=== PATIENT | female | born 1960 | race Caucasian/White ===

== ENCOUNTER → 2020-12-19 12:27 | Outpatient (BNVA) | payer OTHER, SELFPAY | PROVIDERS: Family Provider Family Medicine; PCP Family Medicine; Visit Provider Psychiatry & Neurology Psychiatry | DX: Z03.89 Encounter for observation for other suspected diseases and conditions ruled out (principal); Z79.899 Other long term (current) drug therapy | CPT/HCPCS: 80053; 80061; 83036; 84443; 85025 ==

== ENCOUNTER → 2021-03-07 11:14 | Outpatient (BNVA) | payer SELFPAY | PROVIDERS: Family Provider Family Medicine; PCP Family Medicine; Visit Provider Family Medicine | DX: E03.9 Hypothyroidism, unspecified (principal); J30.9 Allergic rhinitis, unspecified; M19.90 Unspecified osteoarthritis, unspecified site; F33.1 Major depressive disorder, recurrent, moderate; J30.1 Allergic rhinitis due to pollen; R00.2 Palpitations | CPT/HCPCS: 84439; 84443; 84481 ==

== ENCOUNTER → 2021-05-24 10:38 | Outpatient (BNVA) | payer SELFPAY | PROVIDERS: Family Provider Family Medicine; PCP Family Medicine; Referring Provider Family Medicine; Visit Provider Family Medicine | DX: E03.9 Hypothyroidism, unspecified (principal) | CPT/HCPCS: 84439; 84443; 84481 ==

== ENCOUNTER → 2021-06-28 11:26 | Outpatient (BNVA) | payer SELFPAY | PROVIDERS: Family Provider Family Medicine; PCP Family Medicine; Visit Provider Emergency Medicine | DX: E03.9 Hypothyroidism, unspecified (principal); R09.82 Postnasal drip | CPT/HCPCS: 84439; 84443; 84481 ==

== ENCOUNTER 2021-08-21 13:21 | Outpatient (CLI) | payer SELFPAY ==
--- NOTE | 2021-08-21 | CT_ITS ---
WS: [id number] CT CHEST WITH INTRAVENOUS CONTRAST HISTORY: LUNG NODULE F/U TECHNIQUE: Contiguous 5 mm axial imaging performed on the thorax. Coronal and sagittal reformats are submitted. All CT scans at [facility] use at least one of these dose optimization techniques: automated exposure control; mA and/or kV adjustment per patient size (includes targeted exams where dose is matched to clinical indication); or iterative reconstruction. CONTRAST: Omnipaque 300; 95 mL IV. DLP: 754.57 mGycm COMPARISON: None available. Lungs and central airway: Hyperexpanded lungs with moderate thickening of the interstitium. Periphera l airway thickening probably related to smoking and emphysema. No discrete nodules are identified. No pneumonia. Pleura: Very slight pleural thickening bilaterally. Heart and pericardium: Mild enlargement of the RIGHT heart. No pericardial effusion. Mediastinum and jesica: No mediastinum or hilar adenopathy. Vessels: Mild atherosclerosis. Normal size pulmonary artery. Chest wall and lower neck: No soft tissue masses. Upper abdomen: LEFT lobe hepatic cyst measures 9 mm. Smaller cyst in the RIGHT lobe. Gallbladder is p resent. Common bile duct is mildly prominent measuring 8 mm. Pancreatic duct is normal. Osseous structures: RIGHT curvature thoracic spine mild degenerative disc disease. CT/CT chest w con* [id number] IMPRESSION: 1. Chronic emphysema. 2. No pulmonary nodule is identified. No prior studies available for compariso n. 3. Hepatic cysts. 4. Mildly prominent common bile duct without cholelithiasis. No stone within t he duct or mass at the pancreatic head. This may be physiologic dilatation. 5. Mild RIGHT heart enlargement.
[2021-08-21] MEDS: iohexol 300 mg/mL 100 mL Btl IV (14:02)
== END 2021-08-21 13:22 | disposition home or self-care (01) ==
PROVIDERS: PCP Family Medicine; Visit Provider Nurse Practitioner Family
DX: R91.1 Solitary pulmonary nodule (principal); K76.89 Other specified diseases of liver; J43.9 Emphysema, unspecified; I51.7 Cardiomegaly
CPT/HCPCS: 71260; Q9967

== ENCOUNTER → 2022-02-21 11:47 | Outpatient (BNVA) | payer OTHER, SELFPAY | PROVIDERS: PCP Family Medicine; Visit Provider Psychiatry & Neurology Psychiatry | DX: Z03.89 Encounter for observation for other suspected diseases and conditions ruled out (principal); E03.9 Hypothyroidism, unspecified; Z79.899 Other long term (current) drug therapy | CPT/HCPCS: 36415; 80053; 80061; 83036; 84439; 84443; 84481; 85025 ==

== ENCOUNTER → 2022-06-27 14:52 | Outpatient (BNVA) | payer SELFPAY | PROVIDERS: PCP Family Medicine; Visit Provider Nurse Practitioner Women's Health | DX: Z01.419 Encounter for gynecological examination (general) (routine) without abnormal findings (principal) | CPT/HCPCS: 87624 ==

== ENCOUNTER → 2022-10-24 11:55 | Outpatient (BNVA) | payer SELFPAY | PROVIDERS: PCP Family Medicine; Visit Provider Family Medicine | DX: M19.90 Unspecified osteoarthritis, unspecified site (principal); E03.9 Hypothyroidism, unspecified; R53.83 Other fatigue; R53.82 Chronic fatigue, unspecified; J31.0 Chronic rhinitis; F33.2 Major depressive disorder, recurrent severe without psychotic features | CPT/HCPCS: 80053; 82607; 82652; 84439; 84443; 84481; 85025 ==

== ENCOUNTER → 2023-07-24 10:16 | Outpatient (BNVA) | payer MEDICARE, SELFPAY | PROVIDERS: PCP Family Medicine; Visit Provider Family Medicine | DX: E03.9 Hypothyroidism, unspecified (principal); M19.90 Unspecified osteoarthritis, unspecified site; J31.0 Chronic rhinitis; J45.20 Mild intermittent asthma, uncomplicated; E78.00 Pure hypercholesterolemia, unspecified; Z13.1 Encounter for screening for diabetes mellitus | CPT/HCPCS: 80048; 80061; 84439; 84443; 84481 ==

== ENCOUNTER → 2023-10-23 09:49 | Outpatient (BNVA) | payer MEDICARE, SELFPAY | PROVIDERS: PCP Family Medicine; Visit Provider Family Medicine | DX: M54.9 Dorsalgia, unspecified (principal); E03.9 Hypothyroidism, unspecified; Z63.6 Dependent relative needing care at home; B35.4 Tinea corporis; M19.90 Unspecified osteoarthritis, unspecified site; R53.82 Chronic fatigue, unspecified | CPT/HCPCS: 84439; 84443; 84481 ==

== ENCOUNTER → 2024-03-23 10:12 | Outpatient (BNVA) | payer MEDICARE, SELFPAY | PROVIDERS: PCP Family Medicine; Visit Provider Family Medicine | DX: M47.894 Other spondylosis, thoracic region (principal); M47.896 Other spondylosis, lumbar region; M47.892 Other spondylosis, cervical region; M54.2 Cervicalgia; G89.29 Other chronic pain; M54.50 Low back pain, unspecified | CPT/HCPCS: 72040; 72070; 72100; 84439; 84443; 84481 ==

== ENCOUNTER → 2024-05-20 09:13 | Outpatient (BNVA) | payer MEDICARE, SELFPAY | PROVIDERS: PCP Family Medicine; Referring Provider Family Medicine; Visit Provider Family Medicine | DX: F33.2 Major depressive disorder, recurrent severe without psychotic features (principal); E03.9 Hypothyroidism, unspecified; Z79.899 Other long term (current) drug therapy | CPT/HCPCS: 84439; 84443; 84481 ==

== ENCOUNTER 2024-06-01 10:17 | Outpatient (CLI) | payer MEDICARE, SELFPAY ==
--- NOTE | 2024-06-01 10:45 | CT_ITS ---
WS: [id number] LDCT LUNG CANCER SCREENING HISTORY: Z87.891 - Personal history of nicotine dependence TECHNIQUE: Axial imaging performed from the apices to 1 cm below the costophrenic angles. Coronal and sagittal reformats are submitted with axial MIP series. All CT scans at [facility] use at least one of these dose optimization techniques: automated exposure control; mA and/or kV adjustment per patient size (includes targeted exams where dose is matched to clinical indication); or iterativ e reconstruction. DLP: 48.32 mGy.cm DIvol: Mean CTDIvol: 0.90 (mGy) COMPARISON: 08/03/2021 Diagnostic quality: Satisfactory Lungs: Hyperexpanded lungs. Biapical pleural thickening and scarring. No pulmonary mass or nodule is identified. No endobronchial lesions. Heart: Normal size heart with no pericardial effusion.. Other findings: Normal size aorta and pulmonary artery. No mediastinal or hilar adenopathy. Small hia abril hernia. Stable 10 mm hepatic cyst. Curvature and scoliosis thoracic spine. CT/CT lung screening [id number] IMPRESSION: LUNG-RADS: 1-Negative FOLLOW UP: 12 Month: Continue annual screening with LDCT OTHER FINDINGS (S MODIFIER): None.
== END 2024-06-01 10:18 | disposition home or self-care (01) ==
LOC: RAD 10:18
PROVIDERS: PCP Family Medicine; Visit Provider Family Medicine
DX: Z12.2 Encounter for screening for malignant neoplasm of respiratory organs (principal); Z87.891 Personal history of nicotine dependence; J98.4 Other disorders of lung; J92.9 Pleural plaque without asbestos; K44.9 Diaphragmatic hernia without obstruction or gangrene; Q44.6 Cystic disease of liver; M41.34 Thoracogenic scoliosis, thoracic region
CPT/HCPCS: 71271

== ENCOUNTER → 2024-09-30 14:48 | Outpatient (BNVA) | payer MEDICARE, SELFPAY | PROVIDERS: PCP Family Medicine; Visit Provider Family Medicine | DX: Z13.1 Encounter for screening for diabetes mellitus (principal); E03.9 Hypothyroidism, unspecified; E78.00 Pure hypercholesterolemia, unspecified | CPT/HCPCS: 80053; 80061; 84439; 84443; 84481 ==

== ENCOUNTER → 2025-03-08 14:57 | Outpatient (BNVA) | payer MEDICARE, SELFPAY | PROVIDERS: PCP Family Medicine; Visit Provider Psychiatry & Neurology Psychiatry | DX: Z79.899 Other long term (current) drug therapy (principal) | CPT/HCPCS: 80053; 80061; 83036; 84443; 85025 ==

== ENCOUNTER → 2025-05-19 10:08 | Outpatient (BNVA) | payer MEDICARE, SELFPAY | PROVIDERS: Family Provider Family Medicine; PCP Family Medicine; Referring Provider Family Medicine; Visit Provider Family Medicine | DX: E03.9 Hypothyroidism, unspecified (principal) | CPT/HCPCS: 84439; 84443; 84481 ==

== ENCOUNTER 2025-05-24 12:31 | Outpatient (CLI) | payer MEDICARE, SELFPAY ==
--- NOTE | 2025-05-24 12:45 | US_ITS ---
WS: [id number] ULTRASOUND BREAST BILATERAL TECHNIQUE: Ultrasound bilateral breast focused area of concern. CLINICAL INFORMATION: dense breast tissue on mammogram FINDINGS: Bilateral breast ultrasound for dense breast tissue on outside mammogram RIGHT BREAST: Four-quadrant ultrasound RIGHT breast. Dense Parenchymal tissue. No suspicious cystic or solid lesions. LEFT BREAST: Four-quadrant ultrasound LEFT breast. Dense parenchymal tissue. No suspicious cystic or solid lesions. US/US breast BI complete [id number] IMPRESSION: BI-RADS 2 benign Follow-up 1 year
== END 2025-05-24 12:32 | disposition home or self-care (01) ==
LOC: RAD 12:32
PROVIDERS: Family Provider Family Medicine; PCP Family Medicine; Visit Provider Family Medicine
DX: R92.30 Dense breasts, unspecified (principal)
CPT/HCPCS: 76641

== ENCOUNTER → 2025-08-13 14:41 | Outpatient (BNVA) | payer MEDICARE, SELFPAY | PROVIDERS: PCP Family Medicine; Visit Provider Family Medicine | DX: M54.50 Low back pain, unspecified (principal); M54.9 Dorsalgia, unspecified | CPT/HCPCS: 72072; 72100 ==